=== PATIENT | male | born 1965 | race Two or more races ===

== ENCOUNTER 2020-02-16 17:14 | Emergency (ER) | payer SELFPAY ==
[~2020-02-16] VITALS: Ht 167.6 cm; Wt 131.5 kg
[2020-02-16] MEDS ORDERED: HYDROCODONE/APAP 5-325MG TABLET PO ONE (17:45)
--- NOTE | 2020-02-16 18:14 | NUR ---
LANIE FROM XRAY VIA WC.
--- NOTE | 2020-02-16 18:14 | NUR ---
PT SEEN AND EVALUATED BY DR URRUTIA.
[2020-02-16 18:15] VITALS: BP 148/90
[2020-02-16] MEDS ORDERED: HYDROCODONE/APAP 5-325MG TABLET ONE (18:19)
== END 2020-02-16 18:17 | disposition home or self-care (01) ==
LOC: ER 17:14
DX: S20.219A Contusion of unspecified front wall of thorax, initial encounter (principal); S13.9XXA Sprain of joints and ligaments of unspecified parts of neck, initial encounter; V49.9XXA Car occupant (driver) (passenger) injured in unspecified traffic accident, initial encounter; Y92.410 Unspecified street and highway as the place of occurrence of the external cause; R51.9 Headache, unspecified; E66.9 Obesity, unspecified; Z68.42 Body mass index [BMI] 45.0-49.9, adult
CPT/HCPCS: 70450; 71045; A4663